=== PATIENT | male | born 1970 | race Caucasian/White ===

== ENCOUNTER 2018-06-06 17:41 | Emergency (ER) | payer OTHER ==
[~2018-06-06] VITALS: Ht 180.3 cm; Wt 88.5 kg
[2018-06-06] MEDS ORDERED: HYDROCODONE/APAP 10MG-325MG TAB PO ONE ×2 (18:00→18:15)
--- NOTE | 2018-06-06 19:20 | Diagnostic Imaging Report ---
KNEE RIGHT THREE VIEWS HISTORY: Pain. COMPARISON: None available. FINDINGS: Bones: No acute displaced fracture. Osseous alignment is within normal limits. Joints: The joint spaces are well-maintained. Soft tissues: Prepatellar soft tissue swelling. Small suprasellar joint effusion. IMPRESSION: No acute osseous abnormality. Prepatellar soft tissue swelling and small suprapatellar joint effusion. Signed by: DR. Renny Murillo MD on 06/06/2018 7:17 PM
[2018-06-06] MEDS ORDERED: TYLENOL WITH C1 EACH PO (19:40)
[2018-06-06 20:19] VITALS: BP 150/102
== END 2018-06-06 20:24 | disposition home or self-care (01) ==
LOC: ER 17:41
DX: S80.01XA Contusion of right knee, initial encounter (principal); S80.211A Abrasion, right knee, initial encounter; W22.09XA Striking against other stationary object, initial encounter; Y92.008 Other place in unspecified non-institutional (private) residence as the place of occurrence of the external cause; I10 Essential (primary) hypertension; K21.9 Gastro-esophageal reflux disease without esophagitis
CPT/HCPCS: 99283